=== PATIENT | female | born 1955 | race Caucasian/White ===

== ENCOUNTER → 2023-08-03 06:43 | Outpatient (REF) | payer MEDICARE, SELFPAY | LOC: RAD 06:43 | PROVIDERS: ATTENDING PHYSICIAN Family Medicine | DX: H93.A3 Pulsatile tinnitus, bilateral (principal) | CPT/HCPCS: 93880 ==

== ENCOUNTER → 2024-04-02 08:18 | Outpatient (REF) | payer MEDICARE, SELFPAY | LOC: WDC 08:18 | PROVIDERS: ATTENDING PHYSICIAN Family Medicine | DX: Z12.31 Encounter for screening mammogram for malignant neoplasm of breast (principal) | CPT/HCPCS: 77063; 77067 ==

== ENCOUNTER → 2024-05-09 07:13 | Outpatient (REF) | payer MEDICARE, SELFPAY | LOC: MRI 07:13 | PROVIDERS: ATTENDING PHYSICIAN Orthopaedic Surgery; FAMILY PHYSICIAN Family Medicine | DX: M25.512 Pain in left shoulder (principal) | CPT/HCPCS: 73221 ==

== ENCOUNTER 2024-06-06 06:33 | Day surgery (SDC) | payer MEDICARE, SELFPAY ==
[2024-05-30 08:41] LABS: Hematocrit 44.2 % (37.0-47.0); Mean Corp Hgb Conc. 33.9 g/dL (33.0-37.0); Mean Corpuscular Hgb 31.5 pg (27.0-31.0); Mean Corpuscular Volume 92.9 fL (81.0-99.0); Mean Platelet Volume 11.8 fL (7.4-10.4); Platelet Count 283 10^3/uL (130-400); Red Blood Cell Count 4.76 10^6/uL (4.20-5.40); Red Cell Dist. Width 13.7 % (11.5-14.5); White Blood Cell Count 5.3 10^3/uL (4.8-10.8)
[2024-05-30 09:12] LABS: Blood Urea Nitrogen 19 mg/dl (7-17); Calcium 9.7 mg/dl (8.4-10.2); Carbon Dioxide 27 mmol/L (22-30); Chloride 103 mmol/L (98-107); Glucose 100 mg/dl (70-99); Potassium 4.6 mmol/L (3.5-5.1); Sodium 139 mmol/L (135-145); eGFR > 60.00
[2024-05-30 14:03] VITALS: BMI 26.3
[2024-06-06] VITALS (7 sets, daily range): BP systolic 107–138; BP diastolic 57–91; BMI 26.3
[2024-06-06] MEDS: NORMOSOL-R/PLASMALYTE-A 1000 IV (11:20)
[2024-06-06] MEDS: CELEBREX 200 MG PO (11:53)
[2024-06-06] MEDS: TYLENOL 1000 MG PO (11:54)
[2024-06-06] MEDS: [UNRECOGNIZED DRUG - OTHER] 30 UNIT IV (12:00)
--- NOTE | 2024-06-06 12:09 | PTCARENOTE ---
RN spoke with Jarett and Tracey in pharmacy regarding infusion and the administration of the preoperative medications that were ordered. Administered as ordered. IV Berinert infusing as ordered without difficulty on IV pump. Jarett Infusion Pharmacist
spoke with [facility] Pharmacist and RN is infusing this medication in a separate line prior to Interscaline Block.
== END 2024-06-06 15:28 | disposition home or self-care (01) ==
LOC: SDS 06:33
PROVIDERS: ATTENDING PHYSICIAN Orthopaedic Surgery; FAMILY PHYSICIAN Family Medicine
DX: M75.112 Incomplete rotator cuff tear or rupture of left shoulder, not specified as traumatic (principal)
CPT/HCPCS: 29827; 29823; 36415; 80048; 85027; 93005; C1713; J0597

== ENCOUNTER 2024-07-16 06:26 | Outpatient (RCR) | payer MEDICARE, SELFPAY | END 2024-07-16 23:59 | disposition home or self-care (01) | LOC: RPT 06:26 | PROVIDERS: ATTENDING PHYSICIAN Orthopaedic Surgery; FAMILY PHYSICIAN Family Medicine | DX: M25.512 Pain in left shoulder (principal); Z98.890 Other specified postprocedural states; Z73.6 Limitation of activities due to disability | CPT/HCPCS: 97010; 97110; 97140; 97162 ==

== ENCOUNTER 2024-08-16 08:50 | Outpatient (RCR) | payer MEDICARE, SELFPAY | END 2024-08-16 23:59 | disposition home or self-care (01) | LOC: RPT 08:50 | PROVIDERS: ATTENDING PHYSICIAN Orthopaedic Surgery; FAMILY PHYSICIAN Family Medicine | DX: Z47.89 Encounter for other orthopedic aftercare (principal); M25.512 Pain in left shoulder; Z73.6 Limitation of activities due to disability; M62.81 Muscle weakness (generalized); Z98.890 Other specified postprocedural states | CPT/HCPCS: 97010; 97110; 97140 ==

== ENCOUNTER 2024-09-03 08:50 | Outpatient (RCR) | payer MEDICARE, SELFPAY | END 2024-09-03 23:59 | disposition home or self-care (01) | LOC: RPT 08:50 | PROVIDERS: ATTENDING PHYSICIAN Orthopaedic Surgery; FAMILY PHYSICIAN Family Medicine | DX: M25.512 Pain in left shoulder (principal); Z98.890 Other specified postprocedural states; Z73.6 Limitation of activities due to disability | CPT/HCPCS: 97010; 97110 ==

== ENCOUNTER 2024-09-23 08:55 | Outpatient (RCR) | payer MEDICARE, SELFPAY | END 2024-09-23 23:59 | disposition home or self-care (01) | LOC: RPT 08:55 | PROVIDERS: ATTENDING PHYSICIAN Orthopaedic Surgery; FAMILY PHYSICIAN Family Medicine | DX: M25.512 Pain in left shoulder (principal); Z98.890 Other specified postprocedural states; Z73.6 Limitation of activities due to disability | CPT/HCPCS: 97110 ==

== ENCOUNTER → 2025-01-31 07:55 | Outpatient (REF) | payer MEDICARE, SELFPAY | LOC: RAD 07:55 | PROVIDERS: ATTENDING PHYSICIAN Family Medicine | DX: M81.0 Age-related osteoporosis without current pathological fracture (principal) | CPT/HCPCS: 77080 ==